=== PATIENT | male | born 1955 | race Caucasian/White ===

== ENCOUNTER → 2018-06-05 | Day surgery (SDC) | payer BC ==
--- NOTE | 2018-05-30 13:36 | Diagnostic Imaging Report ---
EXAMINATION: CHEST 2 VIEWS INDICATION: Pre-op. COMPARISON: None FINDINGS: TUBES and LINES: None. LUNGS: Lungs are well inflated. Lungs are clear. There is no evidence of pneumonia or pulmonary edema. PLEURA: No pleural effusion or pneumothorax. HEART AND MEDIASTINUM: The cardiomediastinal silhouette is unremarkable. BONES AND SOFT TISSUES: No acute osseous lesion. Soft tissues are unremarkable. UPPER ABDOMEN: No free air under the diaphragm. IMPRESSION: No acute radiographic abnormality. Signed by: Dr. Carisa Payton MD on 05/30/2018 1:33 PM
[~2018-06-05] MED LIST: ADDERALL 10 MG10 MG PO; ALLOPURINOL300 MG PO; ASPIRIN81 MG PO; BUPIVACAINE HCL 0.5% INJ 30 ML VIAL INJ ONE; CEFAZOLIN SOD 1 GM/NS 50ML 50 ML IV ONE; DEPAKOTE250 MG PO; DEXAMETHASONE SOD PHOS INJ 4 MG/ML VIAL ONE; FENTANYL CITRATE/PF 100MCG/2 ML INJ ONE; HYDROCHLOROTHIA25 MG PO; HYDROXYCHLOROQ200 MG PO; KETOROLAC TROMETHAMINE 30 MG/ML VIAL ONE; LIDOCAINE HCL 2% LOCAL INJ 5 ML SDV VIAL INJ ONE; LISINOPRIL10 MG PO; LITHIUM CARBON300 MG PO; LYRICA75 MG PO; MIDAZOLAM HCL 2 MG/2 ML VIAL ONE; MULTIVITAMINS1 EAC7 PO; NEOSTIGMINE 1 MG/ML 10ML VIAL ONE; ONDANSETRON HCL INJ 2MG/ML 2ML 2 MG/ML VIAL ONE; PROPOFOL IV EMULSION 10 MG/ML 20 ML VIAL ONE; PROXICAM PO; REXULTI PO; ROPINIROLE HCL1 MG PO; SEVOFLURANE INHAL SOLN 250 ML PEN BTL ONE; SUPER B COMPLE1 EACH PO; TRAZODONE HCL150 MG PO; ULTRAM50 MG PO
--- OUTSIDE RECORDS SUMMARY | 2018-06-05 05:19 | XMS REPORT ---
[facility] Address Unknown Phone Unavailable Care Team Providers Care Certified Real Estate Appraiser Name Role Phone SHARON CRONIN Unavailable Unavailable Problems This patient has no known problems. Allergies, Adverse Reactions, Alerts This patient has no known allergies or adverse reactions. Medications This patient has no known medications. Results Test Description Test Time Test Comments Text Results Atomic Results Result Comments CHEST 2 VIEWS 2018-05-30 13:31:00 [place] [address] Patient Name: JADON NOVAK MR #: [id number] : 1955 Age/Sex: 63/M Req #: [id number] Adm Physician: Ordered by: SHARON CRONIN DP Report #: [id number] Location: OR Room/Bed: Procedure: [id number] DX/CHEST 2 VIEWS Exam Date: 05/30/18 Exam Time: 1310 REPORT STATUS: Signed EXAMINATION: CHEST 2 VIEWS INDICATION: Pre-op. COMPARISON: None FINDINGS: TUBES and LINES: None. LUNGS: Lungs are well inflated. Lungs are clear. There is no evidence of pneumonia or pulmonary edema. PLEURA: No pleural effusion or pneumothorax. HEART AND MEDIASTINUM: The cardiomediastinal silhouette is unremarkable. BONES AND SOFT TISSUES: No acute osseous lesion. Soft tissues are unremark able. UPPER ABDOMEN: No free air under the diaphragm. IMPRESSION: No acute radiographic abnormality. Signed by: Dr. Beth Barroso MD on 05/30/2018 1:33 PM Dictated By: BETH BARROSO MD [id number] Transcribed By: BROCK on 05/30/18 1332 COPY TO: SHARON CRONIN DPM
[2018-06-05 08:30] VITALS: BP 151/84
--- NOTE | 2018-06-05 17:27 | Operative Report ---
DATE OF PROCEDURE: 06/05/2018 SURGEON: Magali Duckworth DPM PREOPERATIVE DIAGNOSES: 1. Plantarflexed elongated, second metatarsal, left foot. 2. Proximal interphalangeal joint contracture, left second. 3. Neuroma, left second. POSTOPERATIVE DIAGNOSES: 1. Plantarflexed elongated, second metatarsal, left foot. 2. Proximal interphalangeal joint contracture, left second. 3. Neuroma, left second. PROCEDURES: 1. Second metatarsal osteotomy with internal fixation of left foot. 2. Proximal interphalangeal joint fusion, left second. 3. Excision of neuroma, left second. 4. Application of human allograft into the area of the neuroma excision to prevent adhesions and decrease inflammatory response. COMPLICATIONS: None. CONDITION: Stable. ANESTHESIA: General anesthetic. HEMOSTASIS: Pneumatic thigh tourniquet at 350 mmHg. ESTIMATED BLOOD LOSS: Less than 10 mL. MATERIALS: 1. Smart Toe 19 mm 10-degree angle, lot #[id number]. 2. Allograft wet, lot number is [id number], expiration October 08, 2019. 3. 2.0 x 16 mm snap screw from [employer]. PROCEDURE IN DETAIL: Under mild sedation, the patient was brought to the operating room and placed on the operating table in supine position. Following IV sedation, anesthesia was obtained with a general anesthetic. At this point, the left foot was scrubbed, prepped and draped in the usual aseptic manner. The leg was then lowered to the table. Attention was then directed to the dorsal aspect of the left foot where a linear incision was made overlying the second metatarsal. The incision was deepened via sharp and blunt dissection down to the level of the metatarsal. A linear capsulotomy was then performed. The metatarsal was then freed at the head. Metatarsal osteotomy was performed through and through from distal dorsal to proximal plantar. The elongation was corrected. It was fixated utilizing a 2.0 x 16 snap screw. There was noted to be adequate alignment clinically and with the use of intraoperative fluoroscopy. PIPJ fusion: Attention was then directed to the second PIPJ where a linear incision was made overlying the PIPJ. The incision was deepened via sharp and blunt dissection down to the level of the joint. At this point, the joint was then visualized utilizing an oscillating saw. The joint was then prepared for arthrodesis. A Smart Toe was then used and noted to fixate the arthrodesis and what was noted to be adequate alignment clinically and with the use of intraoperative fluoroscopy. Second intermetatarsal space neuroma: Attention was then directed to the second intermetatarsal space where the intermetatarsal ligament was transected. The neuroma was then visualized. It was friable. Utilizing sharp dissection, it was removed. It was passed from the operating table. The areas were flushed with copious amount of normal sterile saline solution. The area was examined for any further signs of neuroma, none were noted. At this point, the allograft was then inserted into the area of the neuroma to prevent adhesions and to promote healing. All areas were then flushed with copious amount of normal sterile saline solution. They were closed, deepest layer with 3-0 Vicryl, 4-0 Vicryl, and 4-0 nylon. Sujatha dressing was applied consisting of Adaptic, Coban, 4 x 4s, Kerlix, and Webril. Posterior splint was applied and it was secured utilizing an Sylvester bandage. The tourniquet was deflated. There was noted to be hyperemic response to all the digits. The patient tolerated the procedure and anesthesia well without complications, was transported to the recovery room with vital signs stable and vascular status intact. The patient will be discharged home when he meets criteria. He was given instructions to be weightbearing with the use of a posterior splint and a postop shoe and crutches or walker. To ice and elevate the foot while at rest. I discussed signs and symptoms of DVT at preop and I reinforced them with the and he will call the office if any questions, concerns, or any problems arise. MOHINI Aguilar/RACHEL /[id number]
== END | disposition home or self-care (01) ==
LOC: OR 05:15
PROVIDERS: ATTEND Podiatrist Foot & Ankle Surgery
DX: M24.575 Contracture, left foot (principal); M20.42 Other hammer toe(s) (acquired), left foot; G57.82 Other specified mononeuropathies of left lower limb; I25.10 Atherosclerotic heart disease of native coronary artery without angina pectoris; M06.9 Rheumatoid arthritis, unspecified; M10.9 Gout, unspecified; Z01.810 Encounter for preprocedural cardiovascular examination; Z01.818 Encounter for other preprocedural examination; Z79.82 Long term (current) use of aspirin; Z95.5 Presence of coronary angioplasty implant and graft
CPT/HCPCS: 28080; 28285; 28308; 71046; 93005; J0690; J1100; J1885; J2001; J2250; J2405; J2704; J2710; 76000